=== PATIENT | female | born 1960 | race Caucasian/White ===

== ENCOUNTER → 2017-02-22 14:33 | Outpatient (CLI) | payer MEDICARE ==
[2017-02-22 15:01] LABS: BASOPHILS 0.2 % (0-2); EOSINOPHILS 1.7 % (0-7); HEMATOCRIT 38.9 % (36.0-48.0); HEMOGLOBIN 12.6 g/dL (12-16); IMMATURE GRANULOCYTES 0.9 % (0-5); LYMPHOCYTES 15.2 % (15-50); MCH 30.5 pg (26.0-34.0); MCHC 32.4 g/dL (31.0-37.0); MCV 94.2 fL (80.0-100.0); MEAN PLATELET VOLUME 9.4 fL (7.4-10.4); MONOCYTES 13.3 % (2-11); NEUTROPHILS 68.7 % (40-80); PLATELET COUNT 261 10x3/uL (130-400); RBC 4.13 10x6/uL (4.00-5.40); RDW 12.7 % (11.5-14.5); WBC 10.6 10x3/uL (4.8-10.8)
[2017-02-22 15:24] LABS: ALBUMIN 3.3 g/dL (3.4-5.0); ANION GAP 13.5 mmol/L (8-16); BILIRUBIN - TOTAL 0.38 mg/dL (0.2-1.3); CALCIUM 9.3 mg/dL (8.5-10.1); CARBON DIOXIDE 27.9 mmol/L (21.0-32.0); CHOL - HDL RATIO 3.7 ratio (2.3-4.1); CREATININE - SERUM 0.9 mg/dL (0.6-1.3); LDL-HDL RATIO 1.7 ratio (1.5-3.5); POTASSIUM - SERUM 3.4 mmol/L (3.5-5.1); PROTEIN - SERUM 7.3 g/dL (6.4-8.2); T4 THYROXIN - FREE 1.28 ng/dL (0.76-1.46); THYROID STIMULATING HORMONE 9.27 uIU/mL (0.36-3.74)
[2017-02-22 15:25] LABS: C-REACTIVE PROTEIN 19.4 mg/dL (0.0-0.9)
[2017-02-22 16:26] LABS: ERYTHROCYTE SEDIMENTATION RATE 62 mm/hr (0-30)
[2017-02-23 13:11] LABS: VITAMIN D 25 HYDROXY 49.1 ng/mL (30.0-100.0)
[2017-02-25 15:17] LABS: CHROMOGRANIN A 2 nmol/L (0-5)
== END | disposition home or self-care (01) ==
LOC: D.LABREF 14:33
PROVIDERS: Student in an Organized Health Care Education/Training Program
DX: M25.50 Pain in unspecified joint (principal); E03.9 Hypothyroidism, unspecified; R50.9 Fever, unspecified; R53.81 Other malaise